=== PATIENT | male | born 1940 | race Caucasian/White ===

== ENCOUNTER 2016-10-17 15:12 | Outpatient (CLI) | payer MEDICARE, OTHER ==
[2016-10-17 15:47] LABS: BASOPHILS % 0.7 (0.0-1.5); MEAN CORPUSCULAR HEMOGLOBIN 30.5 pg (28.0-34.0); MEAN CORPUSCULAR VOLUME 90.4 fl (80.0-100.0); MONOCYTES % 6.5 % (0.0-11.0); NEUTROPHILS # 4.6 # k/uL (1.4-7.7)
[2016-10-17 16:08] LABS: eGFR (African) > 60; eGFR (Non-African) > 60
== END 2016-10-17 15:13 ==
LOC: RT 15:12
PROVIDERS: ATTEND Physician Assistant
DX: R06.02 Shortness of breath (principal); R53.83 Other fatigue
CPT/HCPCS: 36415; 80053; 84484; 85025; 85379

== ENCOUNTER 2016-11-08 12:29 | Emergency (ER) | payer MEDICARE, OTHER ==
--- NOTE | 2016-11-08 12:54 | ED Physician Documentation ---
General Adult - HISTORIAN Historian: patient - HPI Stated Complaint: weakness Chief Complaint: General Adult Onset: other (on and off for 3 weeks) Timing: still present Severity: moderate Further Comments: yes (Pt is a 76 yo male with hx MS and DM who has been having intermittent episodes of slow heart rate, down into the 40's, together with weakness, sob, "heavy legs--can't walk far," for the past 3 weeks. No chest pain.) - ROS CONST: weakness EYES/ENT: none CVS/RESP: shortness of breath. denies: chest pain GI/: none MS/SKIN/LYMPH: none NEURO/PSYCH: dizziness - PAST HX Past History: other (MS, DM) Allergies/Adverse Reactions: Allergies Allergy/AdvReac Type Severity Reaction Status Date / Time No Known Drug Allergies Allergy Verified 11/08/16 12:50 Home Medications: Ambulatory Orders Medication Instructions Recorded Calcium Carb/Vit D3/Minerals 1 each PO 11/08/16 [Calcium +D & Minerals Chew Tab] Gabapentin [Gabapentin] 11/08/16 Interferon Beta-1A/Albumin [Avonex 30 mcg IM Q7D 11/08/16 Admin Pack 30 Mcg Vl] Levothyroxine Sodium [Synthroid] 75 mcg PO DAILY 11/08/16 [place]-3/Dha/Epa/Fish Oil [Fish Oil 1 each PO 11/08/16 [place]-3 EC 1,200 mg] Potassium Gluconate 2.5 meq PO 11/08/16 Pyridoxine HCl [Vitamin B-6] 250 mg PO 11/08/16 [facility] 11/08/16 Tizanidine HCl [Zanaflex] 4 mg PO Q8H PRN 11/08/16 Vitamin B Complex/Folic Acid 2,000 mcg PO 11/08/16 [B-Stress Capsules] Zinc Oxide Powder 11/08/16 - SOCIAL HX Smoking History: non-smoker - FAMILY HX Family History: No - VITAL SIGNS Vital Signs: Vital Signs Temp Pulse Resp BP Pulse Ox 98.4 F 40 L 16 176/81 98 11/08/16 12:35 11/08/16 12:35 11/08/16 12:35 11/08/16 12:35 11/08/16 12:35 - REVIEWED ASSESSMENTS Nursing Assessment Reviewed: Yes Vitals Reviewed: Yes Progress - Progress Progress: episodic bradycardia Transfer to . Hosp. Dr. Garcia. - EKG/XRAY/CT EKG: NSR (HR=60; 1st degree AV block; non-specific ST changes. Of note pt has episodes of bradycardia with HR=40, seen on rhythm strips, appears junctional.) XRAY: chest (No acute pulmonary process.) ED Results Lab/Radiology - Orders Orders: ED Orders Category Date Time Status Continuous EKG monitoring Q30M Care 11/08/16 12:48 Ordered Continuous Pulse Oximetry Q30M Care 11/08/16 12:[address] IV Lock 1T Care 11/08/16 12:50 Ordered CHEST 1 VIEW [RAD] Stat Exams 11/08/16 12:48 Ordered BNP [NT-proBNP] Stat Lab 11/08/16 Ordered CBC/PLATELET/DIFF Routine Lab 11/08/16 12:48 Ordered CKMB Stat Lab 11/08/16 Ordered CMP Routine Lab 11/08/16 12:48 Ordered CREATINE KINASE Routine Lab 11/08/16 12:48 Ordered TROPONIN I (cTnI) Stat Lab 11/08/16 12:48 Ordered Oxygen Daily Oxygen 11/08/16 13:00 Ordered EKG WITH COMPARISON Stat Ther 11/08/16 12:48 Ordered General Adult Physical Exam - PHYSICAL EXAM GENERAL APPEARANCE: mild distress EENT: pharynx normal NECK: normal inspection, supple RESPIRATORY: no resp distress, chest non-tender, breath sounds normal CVS: bradycardia ABDOMEN: soft, no organomegaly, normal bowel sounds BACK: normal inspection, no CVA tenderness SKIN: warm/dry, normal color EXTREMITIES: non-tender, normal range of motion, no evidence of injury, no edema NEURO: oriented X3, motor nml, sensation nml Discharge Clincal Impression: episodic bradycardia, Near syncope Referrals: Moose Eddy MD [Primary Care Provider] - Condition: Stable Disposition: XFER SHT-TRM HOSP Decision to Admit: NO Decision Time: 14:19
[2016-11-08 13:22] LABS: BASOPHILS % 1.1 (0.0-1.5); EOSINOPHILS % 3.3 % (0.0-6.8); MEAN CORPUSCULAR HEMOGLOBIN 31.2 pg (28.0-34.0); MEAN CORPUSCULAR VOLUME 90.5 fl (80.0-100.0); NEUTROPHILS # 4.1 # k/uL (1.4-7.7)
[2016-11-08 13:38] LABS: eGFR (African) > 60; eGFR (Non-African) > 60
--- NOTE | 2016-11-08 13:53 | Diagnostic Imaging Report ---
RAZIA GARCIA - ALLA [facility] [address] [facility] [address] [place] [address]. [id number] Report Submission Date: Nov 08, 2016 1:09:26 PM CDT Patient Study Name: RAZIA CHILDRESS Date: Nov 08, 2016 12:50:48 PM CDT Modality Type: CR Gender: M Description: CHEST : 38 Institution: [facility] Physician: RAZIA GARCIA - Examination: Portable chest History: Chest discomfort Comparison exam: None available Findings: Single view of the chest demonstrates a normal cardiac and mediastinal silhouette. Lung chowdhury without focal infiltrate. No effusion. Osseous structures are appropriate for age. Impression: No acute pulmonary process. Electronically signed on Nov 08, 2016 1:09:26 PM CDT by: Elian MOLINA
[2016-11-08 15:46] VITALS: BP 181/75
== END 2016-11-08 15:40 | disposition short-term general hospital (02) ==
LOC: ED 12:29
DX: R00.1 Bradycardia, unspecified (principal); R55 Syncope and collapse
CPT/HCPCS: 71010; 80053; 82550; 82553; 83880; 84484; 85025; 99284; S1016

== ENCOUNTER 2017-07-23 15:18 | Outpatient (CLI) | payer MEDICARE, OTHER ==
[2017-07-23 15:40] LABS: EOSINOPHILS % 2.4 % (0.0-6.8); MEAN CORPUSCULAR HEMOGLOBIN 29.7 pg (28.0-34.0); MEAN CORPUSCULAR VOLUME 91.4 fl (80.0-100.0); MONOCYTES % 5.7 % (0.0-11.0); NEUTROPHILS # 4.4 # k/uL (1.4-7.7)
[2017-07-23 16:19] LABS: eGFR (African) > 60; eGFR (Non-African) 57
== END 2017-07-23 15:20 ==
LOC: LAB 15:18
PROVIDERS: ATTEND Family Medicine
DX: R53.82 Chronic fatigue, unspecified (principal); E11.9 Type 2 diabetes mellitus without complications
CPT/HCPCS: 36415; 80053; 83036; 84153; 84439; 84443; 84481; 85025

== ENCOUNTER 2017-11-20 11:00 | Outpatient (CLI) | payer MEDICARE, OTHER ==
[2017-11-20 13:42] LABS: eGFR (Non-African) > 60
[2017-11-20 16:22] LABS: EOSINOPHILS % 5.8 % (0.0-6.8); MEAN CORPUSCULAR HEMOGLOBIN 30.1 pg (28.0-34.0); MONOCYTES % 8.1 % (0.0-11.0)
[2017-11-20 16:23] LABS: BASOPHILS % 0.8 (0.0-1.5); NEUTROPHILS # 2.8 # k/uL (1.4-7.7)
[2017-11-21 00:51] LABS: IRON SERUM 123 ug/dL (59-158); SERUM IRON 123 ug/dL (59-158)
== END 2017-11-20 11:02 ==
LOC: LAB 11:00
PROVIDERS: ATTEND Internal Medicine
DX: R63.4 Abnormal weight loss (principal); E11.59 Type 2 diabetes mellitus with other circulatory complications
CPT/HCPCS: 36415; 80053; 80061; 82607; 83036; 83540; 83550; 84443; 85025

== ENCOUNTER 2017-12-05 11:14 | Emergency (ER) | payer MEDICARE, OTHER ==
--- NOTE | 2017-12-05 11:39 | ED Physician Documentation ---
Low Back Pain - HISTORIAN Historian: patient, spouse - HPI Stated Complaint: Back Pain Chief Complaint: Low Back Pain/ Injury Additional Information: Intro self as CLAIMS CORRESPONDENCE CLERK. pt presents to the ED via POV with c/o Right lower back p ain that started yesterday when pt bent over to tow picker something off floor. the pain is 8/10 constant aching non radiating. Pt has tried ibuprofen and his 's oxycodone that was for the pain that did not help. pt has a hx of chronic back pain and back surgery with sima implants. pt denies current chest pain, dyspnea, syncope/near syncope, headache, dizziness, visual disturbances, n/v/d, fever, rash, sick contacts, dysuria, trauma, melena or hematochezia, change in bowel or bladder function, anxiety or depression. ROS Negative unless otherwise specified History: back pain - ROS CONST: no problems. denies: recent illness, weakness CVS/RESP: none. denies: chest pain, shortness of breath EYES/ENT: none. denies: problems with vision MS/SKIN/LYMPH: none, back pain. denies: calf pain, neck pain, ankle swelling Neuro/Psych: none. denies: headache, anxiety, depression GI/: denies: abdominal pain, black stools - PAST HX Past History: other (MS DM2 Hypothyroid) Surgeries/Procedures: back surgery, other (pacemaker) Allergies/Adverse Reactions: Allergies Allergy/AdvReac Type Severity Reaction Status Date / Time No Known Drug Allergies Allergy Verified 11/08/16 12:50 Home Medications: Ambulatory Orders Medication Instructions Recorded Ca/D3/Mag Ox/Zinc/Rotary Pump Operator/Gopi/Bor 1 each PO DAILY 11/08/16 [Calcium +D & Minerals Chew Tab] Levothyroxine Sodium [Synthroid] 50 mcg PO DAILY 11/08/16 [place]-3/Dha/Epa/Fish Oil [Fish Oil 1 each PO DAILY 11/08/16 [place]-3 EC 1,200 mg] [facility] 11/08/16 Vitamin B Complex/Folic Acid 2,000 mcg PO DAILY 11/08/16 [B-Stress Capsules] Zinc Oxide Powder 11/08/16 Lisinopril 20Mg [Prinivil] 20 mg PO AM u2 11/25/16 Nifedipine [Nifedipine Er] 30 mg PO DAILY u2 11/25/16 Furosemide [Lasix] 20 mg PO DAILY 12/05/17 Interferon Beta-1A [Avonex] 30 mcg IM WEEK 12/05/17 - SOCIAL HX Smoking History: non-smoker Alcohol Use: none Drug Use: none - FAMILY HX Family History: none - VITAL SIGNS Vital Signs: Vital Signs Temp Pulse Resp BP Pulse Ox 98.1 F 80 16 120/85 97 12/05/17 11:14 12/05/17 12:42 12/05/17 12:42 12/05/17 12:42 12/05/17 12:42 - REVIEWED ASSESSMENTS Nursing Assessment Reviewed: Yes Vitals Reviewed: Yes ED Results Lab/Radiology - Lab Results Lab Results: Lab Results 12/05/17 11:39 Urine Color Yellow (YELLOW) Urine Appearance Clear (CLEAR) Urine pH 7.0 (5.0 - 8.0) Ur Specific [place] 1.020 (1.010-1.030) Urine Protein Negative mg/dL mg/dL (NEGATIVE) Urine Ketones Negative mg/dL mg/dL (NEGATIVE) Urine Occult Blood Negative (NEGATIVE) Urine Nitrite Negative (NEGATIVE) Urine Bilirubin Negative (NEGATIVE) Urine Urobilinogen 0.2 Eu Eu (0.2-1.0) Ur Leukocyte Esterase Negative (NEGATIVE) Ur Squamous Epith Cells Few (NEG-FEW) Urine Glucose Negative mg/dL mg/dL (NEGATIVE) - Orders Orders: ED Orders Category Date Time Status UA [URINALYSIS] Stat Lab 12/05/17 11:39 Completed Ketorolac Tromethamine [Toradol] Med 12/05/17 11:41 Discontinued 60 mg IM NOW ONE Orphenadrine Citrate [Norflex] Med 12/05/17 11:40 Discontinued 60 mg IM NOW ONE oxyCODONE HCL [Percolone] Med 12/05/17 12:36 Discontinued 5 mg PO Q6 PRN Low Back Pain/Injury - Physical Exam General Appearance: no acute distress, alert EENT: eye inspection normal, ENT inspection normal, pharynx normal, no signs of dehydration, TM's nml Neck: non-tender, painless ROM, trachea midline. No: vertebral point-tendernes Resp/CVS: chest non-tender, breath sounds nml, heart sounds nml, no resp. distress, lungs clear, reg. rate & rhythm Abdomen: non-tender Back: muscle spasm (right lower). No: vertebral point-tendernes, CVA tenderness Straight Leg Raising: Negative Left, Negative Right Neuro/Psych: oriented x3, motor nml, sensation nml Skin: warm/dry, normal color Extremities: non-tender, normal range of motion, no evidence of injury, no edema Discharge Clincal Impression: Back pain Qualifiers: Back pain location: low back pain Chronicity: unspecified Back pain laterality: right Sciatica presence: without sciatica Qualified Code(s): M54.5 - Low back pain Referrals: Moose Eddy MD [Primary Care Provider] - 2 Days Additional Instructions: hydrocodone 5/325 mg- one to two tab every 6 hours as needed for pain Flexeril 10 mg one every 8 hours as needed for muscle spasm Return if worse: chest pain, shortness of breath, feeling faint or fainting or any concern. Follow up with primary care next week if not improving as expected. Condition: Stable Disposition: 01 HOME, SELF-CARE Decision to Admit: NO Date of Decison to Admit: 12/05/17 Decision Time: 12:40
[2017-12-05] MEDS: ORPHENADRINE CITRATE 60 MG/2ML IM ONE (11:50)
[2017-12-05] MEDS: KETOROLAC TROMETHAMINE 60 MG/2 ML VIAL IM ONE (11:52)
[2017-12-05 12:13] LABS: APPEARANCE,URINE CLEAR (CLEAR); COLOR,URINE YELLOW (YELLOW); OCCULT BLOOD,URINE NEGATIVE (NEGATIVE); UROBILINOGEN URINE 0.2 Eu (0.2-1.0)
[2017-12-05] MEDS ORDERED: oxyCODONE HCL 5 MG TABLET PO PRN (12:36)
[2017-12-05 12:44] VITALS: BP 120/85
== END 2017-12-05 12:42 | disposition home or self-care (01) ==
LOC: ED 11:14
DX: M54.5 Low back pain (principal); Z98.1 Arthrodesis status; G89.29 Other chronic pain
CPT/HCPCS: 81002; J1885; J2360; 96372; 99284

== ENCOUNTER 2018-03-13 08:52 | Outpatient (CLI) | payer MEDICARE, OTHER ==
[2018-03-13 10:17] LABS: eGFR (Non-African) 60
== END 2018-03-13 08:54 ==
LOC: LAB 08:52
PROVIDERS: ATTEND Family Medicine
DX: E11.9 Type 2 diabetes mellitus without complications (principal)
CPT/HCPCS: 36415; 80053; 80061; 83036

== ENCOUNTER 2018-04-06 10:29 | Day surgery (SDC) | payer MEDICARE, OTHER ==
[~2018-04-06 10:29] MED LIST: LACTATED RINGERS 1,000 ML IV.SOLN IV ONE; LIDOCAINE HCL 2% PF 100MG/5ML VIAL IJ ONE; PROPOFOL 200 MG/20 ML VIAL IV ONE
--- NOTE | 2018-04-06 15:08 | GI Report ---
REFERRING PHYSICIAN: Dr. Moose Eddy MODEL MAKER FIBERGLASS: Virgil Castellanos MD PROCEDURE MEDICATION: Propofol as per anesthesia. INDICATIONS: Patient has a number of medical issues. He has a pacemaker. He has multiple sclerosis (MS). He has hypertension and thyroid replacement, diabetic, and presently he is on oral agents. He is not following a diabetic diet. Most recent hemoglobin A1C was 7.7, which gives an estimated average blood glucose of 174, which is quite high. He has had kind of anorexia. He denies food stopping. He denies vomiting. He does have peripheral neuropathy. He is a nonsmoker. His only medicine to block acid is an H2 zechariah, ranitidine, once daily. PROCEDURE PERFORMED: Endoscopy and biopsies. PROCEDURE: An Olympus video endoscope is passed through the esophagus under direct visualization. 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 Biopsies were taken. He has a hiatal hernia of moderate size. Fundus and body of antrum, kind of gastroparesis, though there was no residual food. Pylorus open. Duodenal bulb and first and second part of the duodenum exam were normal. Patient tolerated the procedure well. FINDINGS: Severe esophagitis, grade 4 versus Agustin's esophagus with hiatal hernia. RECOMMENDATIONS: 1. He needs to be on something stronger than an H2 zechariah. He needs to be on a PPI such as omeprazole 20 mg twice a day before breakfast and supper. 2. He needs to sleep with the head of his bed elevated. 3. He needs to be on a diabetic diet. 4. Small frequent meals. 5. Follow up biopsy results. 6. Consider an antacid at bedtime. cc: Dr. Moose MOLINA
== END 2018-04-06 14:05 | disposition home or self-care (01) ==
LOC: OPSURG 10:29
PROVIDERS: ATTEND Internal Medicine Gastroenterology
DX: K22.70 Barrett's esophagus without dysplasia (principal); K22.10 Ulcer of esophagus without bleeding; K44.9 Diaphragmatic hernia without obstruction or gangrene; R63.4 Abnormal weight loss
CPT/HCPCS: 43239; J2001; J2704; J7120; S1016

== ENCOUNTER 2018-09-01 10:03 | Outpatient (CLI) | payer MEDICARE, OTHER ==
--- NOTE | 2018-09-01 11:06 | Diagnostic Imaging Report ---
NERI ROLDAN [facility] [address] [facility] [address] [address] Report Submission Date: Sep 01, 2018 10:36:16 AM CDT Patient Study Name: RAZIA CHILDRESS Date: Sep 01, 2018 10:10:45 AM CDT Modality Type: DX Gender: M Description: CHEST 2VIEW : 38 Institution: [facility] Physician: NERI ROLDAN Exam: Chest two views. History: Weight loss. No previous studies are available for comparison. Cardiac pacemaker is in position over the right hemithorax with leads in the anticipated right atrium and right ventricle. Lung chowdhury are well aerated without jeanmarie consolidation or effusion. Heart size is normal with atherosclerotic plaques seen in the aorta. Degenerate changes in the thoracic spine are noted. Impression: No jeanmarie consolidation or effusion. Electronically signed on Sep 01, 2018 10:36:16 AM CDT by: Chemo MOLINA
== END 2018-09-01 10:05 ==
LOC: RAD 10:03
PROVIDERS: ATTEND Family Medicine
DX: R63.0 Anorexia (principal)
CPT/HCPCS: 71046